=== PATIENT | female | born 1940 | race Caucasian/White ===

== ENCOUNTER → 2016-02-20 | Outpatient (CLI) | payer OTHER ==
[~2016-02-20] MED LIST: IRBE-37 PO; LEVO88TA3 PO; MULT-1027 PO; SPIR25TA PO
== END | disposition home or self-care (01) ==
LOC: C.MAMM 08:45
PROVIDERS: ATTEND Internal Medicine
DX: Z78.0 Asymptomatic menopausal state (principal)

== ENCOUNTER → 2016-06-30 | Outpatient (CLI) | payer OTHER ==
--- NOTE | 2016-06-30 15:09 | DIAGNOSTIC IMAGING REPORT ---
RIGHT KNEE 2 VIEWS CLINICAL HISTORY: Right knee pain. No reported history of trauma. FINDINGS: AP and lateral views of the right knee are obtained. No prior studies are available for comparison at the time of dictation. The skeletal structures are osteopenic. No fracture is seen. There is only mild tricompartmental degenerative joint space narrowing. Tiny patellar enthesophytes are observed. There is no joint effusion. Mild soft tissue swelling is present around the knee. IMPRESSION: Mild soft tissue swelling with no acute bony abnormality identified. Electronically signed by: Cornel Macias M.D. 06/30/2016 3:08 PM Dictated Date/Time: 06/30/2016 3:07 PM
== END | disposition home or self-care (01) ==
LOC: C.RADBC 14:45
PROVIDERS: ATTEND Internal Medicine
DX: M25.561 Pain in right knee (principal)

== ENCOUNTER → 2016-07-09 | Outpatient (CLI) | payer OTHER ==
[2016-07-09 11:46] LABS: BLOOD UREA NITROGEN 27 mg/dl (7-18); CARBON DIOXIDE 28 mmol/L (21-32); CHLORIDE 109 mmol/L (98-107); GLUCOSE 89 mg/dl (70-99); POTASSIUM 4.2 mmol/L (3.5-5.1); SODIUM 144 mmol/L (136-145)
[2016-07-09 11:47] LABS: CALCIUM 9.6 mg/dl (8.5-10.1)
== END ==
LOC: C.LABFOXMH 09:41
PROVIDERS: ATTEND Internal Medicine
DX: I10 Essential (primary) hypertension (principal)

== ENCOUNTER → 2016-07-17 | Outpatient (CLI) | payer OTHER ==
[~2016-07-17] MED LIST changes: +GADAVIST IV PRN
--- NOTE | 2016-07-17 21:34 | DIAGNOSTIC IMAGING REPORT ---
MRI LUMBAR SPINE COMBO CLINICAL HISTORY: Chronic low back pain and right lower extremity radiculopathy. COMPARISON STUDY: MRI of the lumbar spine dated 12/27/2014. TECHNIQUE: MRI of the lumbar spine is performed using various T1 and T2-weighted sequences in the axial and sagittal planes. Contrast-enhanced sequences were acquired following the IV administration of 5.5 cc of Gadavist. FINDINGS: Lumbar spine: Vertebral body height is maintained throughout the lumbar spine. There is minimal anterolisthesis at L3-L4. Alignment is otherwise preserved. Marrow signal intensity is heterogeneous, similar to previous. The transverse and spinous processes are intact as visualized. There is no evidence of spondylolysis. No destructive osseous lesion is suggested. Mild chronic degenerative endplate change is seen at L3-L4 and L4-L5. Intervertebral discs: There is degenerative disc desiccation seen throughout the lumbar spine. Mild loss of height is noted at L3-L4. The remaining disc spaces appear preserved. Spinal cord: The visualized spinal cord is normal in morphology and signal intensity. The conus medullaris terminates at the level of L1. No abnormal enhancement is suggested on the postcontrast images. Fatty filum terminale is incidentally noted. L1-L2: Unremarkable. L2-L3: There is posterior disc bulge. There is no significant acquired compromise of the central canal at this level. Minimal bilateral subarticular stenosis is observed. The neural foramina are patent. Facet arthropathy is of no consequence. L3-L4: There is broad-based posterior disc bulge eccentric to the right. In conjunction with hypertrophy of the ligamentum flavum this causes mild to moderate central canal stenosis with a minimum AP diameter of 7 mm. This causes bilateral subarticular stenosis, right greater than left. This likely impinges on the exiting right L3 and transiting right L4 nerve roots. This may also abut the exiting left L3 and transiting left L4 nerve roots. L4-L5: There is broad-based posterior disc bulge with annular fissure. In conjunction with hypertrophy of the ligamentum flavum this contributes to mild acquired compromise of the central canal with a minimum AP diameter of 7.5 mm. There is bilateral subarticular stenosis, right greater than left. This likely impinges on the exiting right L4 and transiting right L5 nerve roots. This may also abut the exiting left L4 and transiting left L5 nerve roots. Facet arthropathy is of no consequence. The neural foramina are patent. L5-S1: There is minimal posterior disc bulge. The central canal is patent. Only minimal subarticular stenosis is identified. Facet arthropathy causes minimal right-sided neural foraminal stenosis. There is a left-sided facet joint effusion. Sacrum: Visualized sacrum is normal in morphology and signal intensity. Soft tissues: There is mild fatty atrophy of the paraspinous musculature. Left renal cysts are observed. IMPRESSION: 1. No acute bony abnormality is identified involving the lumbar spine. 2. Lumbosacral spondylosis as detailed above, greatest at L3-L4 and L4-L5 where there is acquired compromise of the central canal. See discussion for detailed level by level analysis. These findings are similar to slightly progressed from the 12/27/2014 examination. Dictated: 07/17/2016 6:36 PM Transcribed: 07/17/2016 9:34 PM Daniela Electronically signed by: Cornel Macias M.D. 07/17/2016 9:41 PM Dictated Date/Time: 07/17/2016 6:36 PM
== END | disposition home or self-care (01) ==
LOC: C.MRI 16:50
PROVIDERS: ATTEND Internal Medicine
DX: M47.27 Other spondylosis with radiculopathy, lumbosacral region (principal)

== ENCOUNTER 2016-11-10 18:48 | Emergency (ER) | payer OTHER ==
[~2016-11-10] VITALS: Ht 167.6 cm; Wt 61.0 kg
[2016-11-10 18:50] VITALS: TEMP 37.1; Ht 167.6 cm; Wt 61.0 kg
--- NOTE | 2016-11-10 19:25 | EMERGENCY ROOM VISIT NOTE ---
History Report prepared by Manuel: Teresa Corea Under the Supervision of: Dr. Elroy Watson M.D. First contact with patient: 18:52 Chief Complaint: FALL Stated Complaint: FALL, LACERATION TO FOREHEAD History of Present Illness The patient is a 76 year old female with a past medical history of lymphedema who presents to the ED with a cc of an episode of a fall occurring prior to arrival. Positive use of alcohol. She reports having 3 beers today. Negative denies a headache, abdominal pain, knowing what happened, chest pain, neck pain, and the use of blood thinners. Source of History: patient Onset: prior to arrival Position: other (global) Quality: other (global) Timing: other (episode) Associated Symptoms: No headache, No neck pain, No chest pain, No abdominal pain Note: The patient denies knowing what happened. Review of Systems See HPI for pertinent positives and negatives. A total of ten systems were reviewed and were otherwise negative. Past Medical & Surgical Medical Problems: (1) HTN (hypertension) (2) Hyperlipidemia (3) Lymphedema Family History No pertinent family history Social History Alcohol Use: other (3 beers) Marital Status: single Housing Status: assisted living Occupation Status: retired Current/Historical Medications Scheduled Irbesartan (Avapro), 75 MG PO DAILY Levothyroxine Sodium (Levothyroxine Sodium), 88 MCG PO DAILY Multiple Vitamin (Multi Vitamin), 1 TAB PO DAILY Spironolactone (Aldactone), 12.5 MG PO DAILY Allergies Coded Allergies: Amlodipine (Unverified Allergy, Unknown, PELVIC SWELLING, 11/10/16) Atenolol (Unverified Allergy, Unknown, UNKNOWN, 11/10/16) NOT SURE IF IT IS A TRUE ALLERGY Atorvastatin (Unverified Allergy, Unknown, MYALGIA, 11/10/16) Celecoxib (Unverified Allergy, Unknown, RASH, 11/10/16) Iodine (Unverified Allergy, Unknown, RASH, 11/10/16) Lisinopril (Unverified Allergy, Unknown, COUGH, 11/10/16) Lovastatin (Unverified Allergy, Unknown, HAIR LOSS, 11/10/16) Sulfa Antibiotics (Unverified Allergy, Unknown, RASH, 11/10/16) Physical Exam Vital Signs Date Time Temp Pulse Resp B/P (MAP) Pulse Ox O2 Delivery O2 Flow Rate FiO2 11/10/16 23:54 72 14 146/78 96 Room Air 11/10/16 23:13 73 11/10/16 22:33 63 20 145/76 95 Room Air 11/10/16 20:45 59 22 147/85 94 Room Air 11/10/16 18:50 37.1 72 20 172/99 96 Room Air Physical Exam GENERAL: Awake, alert, well-appearing, NAD HENT: Normocephalic, 4 cm laceration that violates the sub-q over the left lateral forehead. EYES: Normal conjunctiva. Sclera non-icteric. NECK: Supple. No nuchal rigidity. Cervical collar is in place. Trachea is midline. No c-spine tenderness. RESPIRATORY: CTAB, no rhonchi, wheezing, crackles CARDIAC: RRR, no MRG ABDOMEN: Soft, NTND, BS+ MSK: No chest wall TTP, no LE edema, chest wall intact, no tenderness to back, trace bruise to left forearm. NEURO: GCS 15, CN 2-12 intact, moves all 4s on command. Oriented x3, dysarthric , good UE and LE strength. SKIN: No rash or jaundice noted. Medical Decision & Procedures ER Provider Diagnostic Interpretation: Radiology results as stated below per my review and radiologist interpretation: HEAD WITHOUT CONTRAST (CT) CLINICAL HISTORY: 76 years-old Female presenting with s/p fall, L forehead lac. TECHNIQUE: Multidetector CT imaging of the head was performed without the use of intravenous contrast. IV contrast: None. A dose lowering technique was used consistent with the principles of ALARA (as low as reasonably achievable). COMPARISON: None. CT DOSE (mGy.cm): The estimated cumulative dose is 638.56 mGycm. FINDINGS: Registered Associate topogram: Unremarkable. Soft tissue irregularity and a defect in the cutis overlying the left frontal region consistent with laceration. Ventricles and sulci normal in size. Brain parenchyma normal in appearance with preserved riojas-white differentiation. No mass effect or midline shift. No hemorrhage or acute territorial infarct. No extra-axial fluid collection. Partial opacification of right ethmoid air cells. Calvarium intact, including subjacent to the laceration. IMPRESSION: 1. No acute intracranial pathology. 2. Superficial laceration in the left frontal region. No subjacent osseous injury. Electronically signed by: Tc Skelton M.D. 11/10/2016 8:17 PM Dictated Date/Time: 11/10/2016 8:15 PM L FOREARM 2 VIEWS ROUTINE CLINICAL HISTORY: 76 years-old Female presenting with LUE bruising. TECHNIQUE: Frontal and lateral views of the left forearm are obtained. COMPARISON: None. FINDINGS: Osteopenia suggested. Distal radial ulnar and elbow joints grossly congruent. No acute fracture or subluxation. Tiny ossific fragment at the ulnar styloid may be degenerative in etiology or represent a old avulsion fracture. Regional soft tissues within normal limits. IMPRESSION: No acute osseous injury of the left forearm. Osteopenia suggested. Electronically signed by: Tc Skelton M.D. 11/10/2016 8:59 PM Dictated Date/Time: 11/10/2016 8:58 PM CHEST ONE VIEW PORTABLE CLINICAL HISTORY: 76 years-old Female presenting with s/p fall. TECHNIQUE: Portable upright AP view of the chest was obtained. COMPARISON: 01/04/2015. FINDINGS: Cardiomediastinal silhouette normal. Minimal persistent bandlike opacity in the left lung base. No new focal infiltrate. No pleural effusion or pneumothorax. Osseous structures normal. Upper abdomen normal. IMPRESSION: 1. Minimal left basilar scarring, unchanged. No new focal infiltrate. Electronically signed by: Tc Skelton M.D. 11/10/2016 8:58 PM Dictated Date/Time: 11/10/2016 8:57 PM CERVICAL SPINE W/O CLINICAL HISTORY: 76 years-old Female presenting with s/p fall, intoxicated. TECHNIQUE: Multidetector CT of the cervical spine was performed without the use of intravenous contrast. IV contrast: None. A dose lowering technique was used consistent with the principles of ALARA (as low as reasonably achievable). COMPARISON: None. CT DOSE (mGy.cm): The estimated cumulative dose is 466.95 mGycm. FINDINGS: Registered Associate topogram: Unremarkable. Normal cervical lordosis. Vertebral body heights and alignment maintained. Disc osteophyte complexes noted at C5-6 and C6-7. Vacuum disc phenomenon noted at C5-6. Facet arthropathy noted diffusely. No acute fracture or subluxation. Degenerative changes of the atlantoaxial articulation also noted. Facet arthropathy in combination with osteophyte complexes and uncovertebral hypertrophy results in mild osseous neural foraminal narrowing on the right at C5-6. No significant osseous neural foraminal narrowing at C6-7 or the remaining levels. No osseous spinal canal narrowing. Paraspinal soft tissues within normal limits. Lung apices clear. IMPRESSION: 1. No acute osseous injury of the cervical spine. 2. Degenerative changes focally at C5-6 and C6-7. Electronically signed by: Tc Skelton M.D. 11/10/2016 8:26 PM Dictated Date/Time: 11/10/2016 8:21 PM Laboratory Results 11/10/16 19:50 Red Blood Count 4.41, Mean Corpuscular Volume 91.8, Mean Corpuscular Hemoglobin 31.3, Mean Corpuscular Hemoglobin Concent 34.1, Mean Platelet Volume 9.5, Neutrophils (%) (Auto) 43.1, Lymphocytes (%) (Auto) 48.1, Monocytes (%) (Auto) 4.8, Eosinophils (%) (Auto) 2.9, Basophils (%) (Auto) 1.0, Neutrophils # (Auto) 2.95, Lymphocytes # (Auto) 3.30, Monocytes # (Auto) 0.33, Eosinophils # (Auto) 0.20, Basophils # (Auto) 0.07 11/10/16 19:50 Test 11/10/16 19:50 11/10/16 20:28 11/10/16 21:26 White Blood Count 6.86 K/uL (4.8-10.8) Red Blood Count 4.41 M/uL (4.2-5.4) Hemoglobin 13.8 g/dL (12.0-16.0) Hematocrit 40.5 % (37-47) Mean Corpuscular Volume 91.8 fL (80-100) Mean Corpuscular Hemoglobin 31.3 pg (25-34) Mean Corpuscular Hemoglobin Concent 34.1 g/dl (32-36) Platelet Count 256 K/uL (130-400) Mean Platelet Volume 9.5 fL (7.4-10.4) Neutrophils (%) (Auto) 43.1 % Lymphocytes (%) (Auto) 48.1 % Monocytes (%) (Auto) 4.8 % Eosinophils (%) (Auto) 2.9 % Basophils (%) (Auto) 1.0 % Neutrophils # (Auto) 2.95 K/uL (1.4-6.5) Lymphocytes # (Auto) 3.30 K/uL (1.2-3.4) Monocytes # (Auto) 0.33 K/uL (0.11-0.59) Eosinophils # (Auto) 0.20 K/uL (0-0.5) Basophils # (Auto) 0.07 K/uL (0-0.2) RDW Standard Deviation 42.1 fL (36.4-46.3) RDW Coefficient of Variation 12.5 % (11.5-14.5) Immature Granulocyte % (Auto) 0.1 % Immature Granulocyte # (Auto) 0.01 K/uL (0.00-0.02) Anion Gap 10.0 mmol/L (3-11) Est Creatinine Clear Calc Drug Dose 52.9 ml/min Estimated GFR () 76.6 Estimated GFR (Non- 66.1 BUN/Creatinine Ratio 18.6 (10-20) Calcium Level 9.4 mg/dl (8.5-10.1) Phosphorus Level 2.8 mg/dl (2.5-4.9) Magnesium Level 2.3 mg/dl (1.8-2.4) Troponin I < 0.015 ng/ml (0-0.045) Ethyl Alcohol mg/dL 261.0 mg/dl (0-3) Urine Color YELLOW Urine Appearance CLEAR (CLEAR) Urine pH 5.0 (4.5-7.5) Urine Specific [place] 1.012 (1.000-1.030) Urine Protein NEG (NEG) Urine Glucose (UA) NEG (NEG) Urine Ketones NEG (NEG) Urine Occult Blood NEG (NEG) Urine Nitrite NEG (NEG) Urine Bilirubin NEG (NEG) Urine Urobilinogen NEG (NEG) Urine Leukocyte Esterase LARGE (NEG) Urine WBC (Auto) 10-30 /hpf (0-5) Urine RBC (Auto) 0-4 /hpf (0-4) Urine Hyaline Casts (Auto) 1-5 /lpf (0-5) Urine Epithelial Cells (Auto) 20-30 /lpf (0-5) Urine Bacteria (Auto) NEG (NEG) Urine Crystals AMORPHOUS SEDIMENT (NONE Urine Yeast (Auto) (NONE PRSENT) Laboratory results reviewed by me Medications Administered Medications (Trade) Dose Ordered Sig/Guerline Route Start Time Stop Time Status Last Admin Dose Admin Sodium Chloride 1,000 ml @ 999 mls/hr Q1H1M STAT IV 11/10/16 19:22 11/10/16 20:22 DC 11/10/16 19:45 999 MLS/HR Folic Acid 1 mg/ Syringe 10 ml @ 5 mls/min ONE STAT IV 11/10/16 19:22 11/10/16 19:25 DC 11/10/16 19:54 5 MLS/MIN Thiamine HCl (Vitamin B-1 Inj) 100 mg NOW STAT IV 11/10/16 19:22 11/10/16 19:25 DC 11/10/16 19:46 100 MG Diphtheria/ Pertussis/Tetanus Vacc (Adacel Inj) 0.5 ml ONCE ONCE IM. 11/10/16 19:30 11/10/16 19:31 DC 11/10/16 19:46 0.5 ML ECG Indication: other (fall) Rate (beats per minute): 63 Rhythm: normal sinus Findings: other (normal axis, normal intervals, no other STS changes or T wave Inversions) ED Course 1856: The patient was evaluated in room B4B. A complete history and physical exam was performed. 0055: I reevaluated the patient. Discussed results and discharge instructions: she verbalized understanding and agreement. The patient is ready for discharge. Medical Decision Differential diagnoses include ICH, sprain, strain, alcohol intoxication, metabolic abnormality, seizure, syncope. Patient was seen and evaluated at the bedside. Patient noted to have dysarthria but was moving all of her extremities without issue. Patient was appropriate. Patient did admit to drinking today. Patient did have an obvious laceration to the left forehead. Patient had CT head CT C-spine as well as labwork that was completed and showed EKG. Patient had no abnormal findings. Patient was reassessed at 1 AM. Patient clinically sober. The laceration was repaired washed out by one of the physician assistants. Patient was able tolerate by mouth and ambulated without difficulty. Patient was given strict follow-up, discharge, return precautions and was discharged home. Medication Reconcilliation Current Medication List: was personally reviewed by me Blood Pressure Screening Patient's blood pressure: Elevated blood pressure Blood pressure disposition: Referred to PCP Impression Primary Impression: Fall Additional Impressions: Alcohol intoxication Laceration of forehead Scribe Attestation The scribe's documentation has been prepared under my direction and personally reviewed by me in its entirety. I confirm that the note above accurately reflects all work, treatment, procedures, and medical decision making performed by me. Departure Information Dispostion Home / Self-Care Referrals David Dos Santos M.D. (PCP) Forms HOME CARE DOCUMENTATION FORM, IMPORTANT VISIT INFORMATION Patient Instructions ED Laceration All, ED Wound Care, My [facility] Additional Instructions Please return to the emergency department if you have worsening or recurrent symptoms not amenable to at-home treatment. Please call for a follow-up appointment with her primary care physician. Please take your medications as prescribed. If you have other concerns and/or complaints please feel free to also call your primary care physician's office or return the ED for further evaluation, management, and treatment. You have been examined and treated today on an emergency basis only. This is not a substitute for, or an effort to provide, complete comprehensive medical care. It is impossible to recognize and treat all injuries or illnesses in a single emergency department visit. It is therefore important that you follow up closely with [facility]. Call as soon as possible for an appointment. Thank you for your time and consideration. I look forward to speaking with you again soon. Please don't hesitate to call us if you have any questions. Problem Qualifiers Primary Impression: Fall Encounter type: initial encounter Qualified Codes: W19.XXXA - Unspecified fall, initial encounter Additional Impressions: Alcohol intoxication Complication of substance-induced condition: uncomplicated Qualified Codes: F10.920 - Alcohol use, unspecified with intoxication, uncomplicated Laceration of forehead Encounter type: initial encounter Qualified Codes: S01.81XA - Laceration without foreign body of other part of head, initial encounter
[2016-11-10] MEDS ORDERED: IRBE-37 PO (19:26)
[2016-11-10] MEDS ORDERED: SPIR25TA PO (19:26)
[2016-11-10] MEDS ORDERED: LEVO88TA3 PO (19:26)
[2016-11-10] MEDS ORDERED: MULT-1027 PO (19:26)
[2016-11-10] MEDS: SODIUM CHLORIDE 0.9% 1000ML 1,000 ML IV STA (19:45)
[2016-11-10] MEDS: THIAMINE HCL 100 MG/ML 2 ML VIAL IV STA (19:46)
[2016-11-10] MEDS: DIPHTHERIA/TETANUS/PERTUSSIS 0.5 ML SYR/VIAL IM. ONE (19:46)
[2016-11-10] MEDS: FoLIC ACID INJ 1 MG in SYRINGE 9.8 ML IV STA (19:54)
[2016-11-10 20:13] LABS: BASO ABS # 0.07 K/uL (0-0.2); COMPLETE YES; EOS % 2.9 %; HEMATOCRIT 40.5 % (37-47); IG% 0.1 %; LYMPH % 48.1 %; MEAN CELL VOLUME 91.8 fL (80-100); MEAN CORPUSCULAR HEMOGLOBIN 31.3 pg (25-34); MEAN CORPUSCULAR HGB CONC 34.1 g/dl (32-36); MEAN PLATELET VOLUME 9.5 fL (7.4-10.4); MONO % 4.8 %; NEUT % 43.1 %; PLATELET COUNT 256 K/uL (130-400); RED BLOOD COUNT 4.41 M/uL (4.2-5.4); WHITE BLOOD COUNT 6.86 K/uL (4.8-10.8)
--- NOTE | 2016-11-10 20:18 | DIAGNOSTIC IMAGING REPORT ---
HEAD WITHOUT CONTRAST (CT) CLINICAL HISTORY: 76 years-old Female presenting with s/p fall, L forehead lac. TECHNIQUE: Multidetector CT imaging of the head was performed without the use of intravenous contrast. IV contrast: None. A dose lowering technique was used consistent with the principles of ALARA (as low as reasonably achievable). COMPARISON: None. CT DOSE (mGy.cm): The estimated cumulative dose is 638.56 mGycm. FINDINGS: Muck Hauler topogram: Unremarkable. Soft tissue irregularity and a defect in the cutis overlying the left frontal region consistent with laceration. Ventricles and sulci normal in size. Brain parenchyma normal in appearance with preserved riojas-white differentiation. No mass effect or midline shift. No hemorrhage or acute territorial infarct. No extra-axial fluid collection. Partial opacification of right ethmoid air cells. Calvarium intact, including subjacent to the laceration. IMPRESSION: 1. No acute intracranial pathology. 2. Superficial laceration in the left frontal region. No subjacent osseous injury. Electronically signed by: Tc Skelton M.D. 11/10/2016 8:17 PM Dictated Date/Time: 11/10/2016 8:15 PM
--- NOTE | 2016-11-10 20:27 | DIAGNOSTIC IMAGING REPORT ---
CERVICAL SPINE W/O CLINICAL HISTORY: 76 years-old Female presenting with s/p fall, intoxicated. TECHNIQUE: Multidetector CT of the cervical spine was performed without the use of intravenous contrast. IV contrast: None. A dose lowering technique was used consistent with the principles of ALARA (as low as reasonably achievable). COMPARISON: None. CT DOSE (mGy.cm): The estimated cumulative dose is 466.95 mGycm. FINDINGS: [employer] topogram: Unremarkable. Normal cervical lordosis. Vertebral body heights and alignment maintained. Disc osteophyte complexes noted at C5-6 and C6-7. Vacuum disc phenomenon noted at C5-6. Facet arthropathy noted diffusely. No acute fracture or subluxation. Degenerative changes of the atlantoaxial articulation also noted. Facet arthropathy in combination with osteophyte complexes and uncovertebral hypertrophy results in mild osseous neural foraminal narrowing on the right at C5-6. No significant osseous neural foraminal narrowing at C6-7 or the remaining levels. No osseous spinal canal narrowing. Paraspinal soft tissues within normal limits. Lung apices clear. IMPRESSION: 1. No acute osseous injury of the cervical spine. 2. Degenerative changes focally at C5-6 and C6-7. Electronically signed by: Tc Skelton M.D. 11/10/2016 8:26 PM Dictated Date/Time: 11/10/2016 8:21 PM
[2016-11-10 20:30] LABS: BLOOD UREA NITROGEN 16 mg/dl (7-18); BUN/CREATININE RATIO 18.6 (10-20); CALCIUM 9.4 mg/dl (8.5-10.1); CARBON DIOXIDE 24 mmol/L (21-32); CHLORIDE 106 mmol/L (98-107); CREATININE 0.86 mg/dl (0.60-1.20); GLUCOSE 84 mg/dl (70-99); MAGNESIUM 2.3 mg/dl (1.8-2.4); POTASSIUM 3.7 mmol/L (3.5-5.1); SODIUM 140 mmol/L (136-145)
[2016-11-10 20:35] LABS: PHOSPHORUS 2.8 mg/dl (2.5-4.9)
--- NOTE | 2016-11-10 21:00 | DIAGNOSTIC IMAGING REPORT ---
CHEST ONE VIEW PORTABLE CLINICAL HISTORY: 76 years-old Female presenting with s/p fall. TECHNIQUE: Portable upright AP view of the chest was obtained. COMPARISON: 01/04/2015. FINDINGS: Cardiomediastinal silhouette normal. Minimal persistent bandlike opacity in the left lung base. No new focal infiltrate. No pleural effusion or pneumothorax. Osseous structures normal. Upper abdomen normal. IMPRESSION: 1. Minimal left basilar scarring, unchanged. No new focal infiltrate. Electronically signed by: Tc Skelton M.D. 11/10/2016 8:58 PM Dictated Date/Time: 11/10/2016 8:57 PM
--- NOTE | 2016-11-10 21:01 | DIAGNOSTIC IMAGING REPORT ---
L FOREARM 2 VIEWS ROUTINE CLINICAL HISTORY: 76 years-old Female presenting with LUE bruising. TECHNIQUE: Frontal and lateral views of the left forearm are obtained. COMPARISON: None. FINDINGS: Osteopenia suggested. Distal radial ulnar and elbow joints grossly congruent. No acute fracture or subluxation. Tiny ossific fragment at the ulnar styloid may be degenerative in etiology or represent a old avulsion fracture. Regional soft tissues within normal limits. IMPRESSION: No acute osseous injury of the left forearm. Osteopenia suggested. Electronically signed by: Tc Skelton M.D. 11/10/2016 8:59 PM Dictated Date/Time: 11/10/2016 8:58 PM
[2016-11-10] MEDS: LIDOCAINE/EPINEPHRINE 1% 20 ML VIAL INFIL ONE (21:28)
[2016-11-10 21:46] LABS: URINE APPEARANCE CLEAR (CLEAR); URINE BILIRUBIN NEG (NEG); URINE COLOR YELLOW; URINE EPITHELIAL CELL AUTO 20-30 /lpf (0-5); URINE NITRITE NEG (NEG); URINE SPECIFIC GRAVITY 1.012 (1.000-1.030); UROBILINOGEN NEG (NEG)
[2016-11-10 21:47] LABS: MANUAL MICROSCOPIC REQUIRED? NO; REVIEW REQ? YES
--- NOTE | 2016-11-11 01:25 | EMERGENCY ROOM VISIT NOTE ---
ED Visit Note Patient was seen and evaluated by Dr. Watson. Please refer to his note regarding pt. stay. I was asked to perform primary wound closure. Risks and benefits of performing primary wound closure versus no repair were discussed with the patient who verbalizes understanding. Verbal consent was obtained prior to performing the procedure. 4 cc of 1% buffered lidocaine with epinephrine was used to anesthetize the 4 cm laceration. The wound was cleansed and prepped in the typical sterile fashion utilizing normal saline and Betadine. The wound was sterilely draped. Once proper anesthetization was established, the wound was further examined and demonstrated deep involvement down to the bone. The wound was copiously irrigated with normal saline and Betadine. Multilayer close was initiated. One simple 5-0 Vicryl suture was placed to close the galea. The subcutaneous layer was closed using 3 simple, 5-0 Vicryl sutures with the wound edges being well approximated. Lastly, the skin was closed well with 7 6-0 nylon sutures with well approximated wound edges. Patient tolerated the procedure well. No complications were met.
[2016-11-11 02:00] VITALS: BP 144/75; PULSE 64; O2SAT 99
== END 2016-11-11 02:00 | disposition home or self-care (01) ==
LOC: EDBD 18:48 → C.EDB 18:49
DX: S01.81XA Laceration without foreign body of other part of head, initial encounter (principal); W19.XXXA Unspecified fall, initial encounter; F10.129 Alcohol abuse with intoxication, unspecified; Y90.8 Blood alcohol level of 240 mg/100 ml or more; Z23 Encounter for immunization; I10 Essential (primary) hypertension; E78.5 Hyperlipidemia, unspecified; Z79.899 Other long term (current) drug therapy; Z88.2 Allergy status to sulfonamides; Z88.8 Allergy status to other drugs, medicaments and biological substances; Z91.09 Other allergy status, other than to drugs and biological substances

== ENCOUNTER → 2016-11-12 | Outpatient (CLI) | payer OTHER ==
[~2016-11-12] MED LIST changes: -GADAVIST IV PRN
[2016-11-12 08:22] LABS: HEMATOCRIT 44.8 % (37-47); MEAN CELL VOLUME 91.8 fL (80-100); MEAN CORPUSCULAR HEMOGLOBIN 30.7 pg (25-34); MEAN CORPUSCULAR HGB CONC 33.5 g/dl (32-36); MEAN PLATELET VOLUME 10.3 fL (7.4-10.4); PLATELET COUNT 304 K/uL (130-400); RED BLOOD COUNT 4.88 M/uL (4.2-5.4); WHITE BLOOD COUNT 6.55 K/uL (4.8-10.8)
[2016-11-12 08:31] LABS: BLOOD UREA NITROGEN 17 mg/dl (7-18); CALCIUM 9.7 mg/dl (8.5-10.1); CARBON DIOXIDE 26 mmol/L (21-32); CHLORIDE 106 mmol/L (98-107); CHOLESTEROL 262 mg/dl (0-200); GLUCOSE 105 mg/dl (70-99); POTASSIUM 3.7 mmol/L (3.5-5.1); SODIUM 140 mmol/L (136-145)
[2016-11-12 08:42] LABS: CHOLESTEROL/HDL RATIO 4.2; HDL CHOLESTEROL 63 mg/dl; LDL CHOLESTEROL CALCULATED 160 mg/dl; THYROID STIMULATING HORMONE 0.428 uIu/ml (0.300-4.500); TRIGLYCERIDES 196 mg/dl (0-150); VERY LOW DENSITY LIPOPROT CALC 39 mg/dl
== END | disposition home or self-care (01) ==
LOC: C.LABFOXMH 07:48
PROVIDERS: ATTEND Internal Medicine
DX: E78.5 Hyperlipidemia, unspecified (principal)